=== PATIENT | female | born 1960 | race Caucasian/White ===

== ENCOUNTER 2018-08-03 21:03 | Inpatient (IN) | payer SELFPAY ==
[~2018-08-03] VITALS: Ht 170.2 cm; Wt 91.3 kg
[2018-08-03 21:46] LABS: BASOPHILS ABSOLUTE AUTO 0.04 K/mm3 (0.00-0.23); BASOPHILS PERCENT AUTO 1 % (0-2); EOSINOPHILS ABSOLUTE AUTO 0.08 K/mm3 (0.00-0.68); EOSINOPHILS PERCENT AUTO 1 % (0-6); Hematocrit 39.2 % (33.0-51.0); Hemoglobin 12.5 g/dL (11.5-16.0); IMMATURE GRAN ABSOLUTE AUTO 0.02 K/mm3 (0.00-0.10); IMMATURE GRAN PERCENT AUTO 0 % (0-1); LYMPHOCYTES PERCENT AUTO 9 % (21-46); MONOCYTES ABSOLUTE AUTO 0.21 K/mm3 (0.16-1.47); MONOCYTES PERCENT AUTO 3 % (4-13); Mean Corpuscular HGB 28.5 pg (26.0-34.0); Mean Corpuscular HGB Conc 31.9 g/dL (31.5-36.5); Mean Corpuscular Volume 89 fL (80-100); Mean Platelet Volume 9.7 fL (9.1-12.4); NEUTROPHILS ABSOLUTE AUTO 6.37 K/mm3 (1.96-9.15); NEUTROPHILS PERCENT AUTO 86 % (41-73); Platelet Count 211 K/mm3 (150-400); RDW Coefficient Variation 13.2 % (11.7-14.2); RDW Standard Deviation 43.8 fL (35.1-46.3); Red Blood Cell Count 4.39 M/mm3 (3.80-5.20); White Blood Cell Count 7.42 K/mm3 (4.00-11.30)
[2018-08-03 22:07] LABS: Alanine Aminotransfer (ALT/SGP 23 U/L (12-78); Albumin, Blood 3.8 g/dL (3.4-5.0); Albumin/Globulin Ratio 1.3 (0.8-1.8); Alk Phos 80 U/L (50-136); Anion Gap 8 mmol/L (6-16); Aspartate Aminotrans (AST/SGOT 7 U/L (12-37); Bilirubin, Total 0.3 mg/dL (0.1-1.0); Blood Urea Nitrogen 16 mg/dL (8-24); Bun/Creatinine Ratio 19.4 (12.0-20.0); CO2, Blood 28 mmol/L (21-32); Calcium, Blood 8.3 mg/dL (8.5-10.1); Chloride, Blood 107 mmol/L (98-108); Creatinine, Blood 0.83 mg/dL (0.40-1.00); Glomerular Filtration Rate >60 (60-); Glucose, Blood 187 mg/dL (70-99); Potassium, Blood 3.4 mmol/L (3.5-5.5); Sodium, Blood 143 mmol/L (136-145); Total Protein, Blood 6.8 g/dL (6.4-8.2)
[2018-08-03] MEDS ORDERED: CLON.1 PO (23:19)
[2018-08-03 23:26] LABS: International Normalized Ratio 0.98; Prothrombin Time Results 10.4 Sec (9.7-11.5)
--- NOTE | 2018-08-04 06:23 | NUR ---
PCU NOC SHIFT SUMMARY PATIENT ALERT AND ORIENTED X4 T/O SHIFT. RESPIRATIONS E/U ON ROOM AIR; LUNG SOUNDS CLEAR. PATIENT DENIES ANY CHEST PAIN OR PRESSURE T/O SHIFT. PATIENT ARRIVED WITH NITRO PATCH IN PLACE - PATCH REMOVED. PATIENT REPORTED HEADACHE RELIEVED WITH MEDICATION PER EMAR. PATIENT INDEPENDENT IN ROOM. HEPARIN GTT RUNNING VERIFIED BY TITI TERRY. NO ACUTE CHANGES T/O SHIFT. PATIENT REMAINS SINUS TO SINUS WILBUR WITH NO CARDIAC EVENTS NOTED. [facility] AND REPORT TO JIMMY TERRY.
--- NOTE | 2018-08-04 07:46 | NUR ---
NURSING PCU DAYSHIFT: Assumed care of pt at approx 0700. A/O, very pleasant and cooperative w/care. C/O 10 pain r/t DEWEY which pt states is chronic. Ambulates indepedently and w/o difficulty. Skin is intact w/no breakdown noted. Tele in place, NSR, hypertensive, no c/o CP/pressure, trace BLE edema. L/S cta t/o, O2 sat stable on RA, denies dyspnea, no noted cough. Abd SNT, BT+, voiding w/o difficulty. PIV x1, hep gtt infusing at 13u/kg/hr (19.2 mls/hr) per pharmacy dosing. No s/s of acute distress at this time. Pt is NPO, awaiting rounding from PMD and cardiology consult. Discussed and provided education regarding troponin, hep gtt, CAD, PO medications, and angiogram. Pt denies any current needs or questions regarding plan of care. Call light in reach, cont to monitor for any changes.
[2018-08-04 10:15] LABS: CHOL/HDL RATIO 2.7; Cholesterol 196 mg/dL (50-200); HDL Cholesterol 73 mg/dL (>39); LDL/HDL RATIO 1.5; Low Density Lipoprotein Chol 109 mg/dL (0-110); Magnesium, Blood 2.1 mg/dL (1.6-2.4); Triglycerides 71 mg/dL (30-160); Very Low Density Lipoprot Chol 14 mg/dL (6-32)
--- NOTE | 2018-08-04 11:49 | NUR ---
ECHOCARDIOGRAM COMPLETED
--- NOTE | 2018-08-04 17:56 | NUR ---
NURSING PCU DAYSHIFT SUMMARY: No significant changes noted t/o the shift. Seen by PMD and environmental professional, new d/o received. Angiogram completed early this afternoon, returned to room at approx 1430. R radial site w/TR band in place, no bleed or hematoma noted. Recovering as per protocol, BP improved, wrist board remains in place. Family has remained at bedside t/o the shift. Plan of care and medications discussed. Pt and family deny any questions/needs at this time. Pt is hopeful for discharge home tomorrow, cont to monitor until rpt is given to NOC RN.
[2018-08-05 04:08] LABS: BASOPHILS ABSOLUTE AUTO 0.05 K/mm3 (0.00-0.23); BASOPHILS PERCENT AUTO 1 % (0-2); EOSINOPHILS ABSOLUTE AUTO 0.15 K/mm3 (0.00-0.68); EOSINOPHILS PERCENT AUTO 3 % (0-6); Hematocrit 38.8 % (33.0-51.0); Hemoglobin 12.3 g/dL (11.5-16.0); IMMATURE GRAN ABSOLUTE AUTO 0.02 K/mm3 (0.00-0.10); IMMATURE GRAN PERCENT AUTO 0 % (0-1); LYMPHOCYTES ABSOLUTE AUTO 0.94 K/mm3 (0.84-5.20); LYMPHOCYTES PERCENT AUTO 16 % (21-46); MONOCYTES ABSOLUTE AUTO 0.49 K/mm3 (0.16-1.47); MONOCYTES PERCENT AUTO 8 % (4-13); Mean Corpuscular HGB Conc 31.7 g/dL (31.5-36.5); Mean Corpuscular Volume 88 fL (80-100); Mean Platelet Volume 9.8 fL (9.1-12.4); NEUTROPHILS ABSOLUTE AUTO 4.35 K/mm3 (1.96-9.15); NEUTROPHILS PERCENT AUTO 73 % (41-73); Platelet Count 220 K/mm3 (150-400); RDW Coefficient Variation 13.7 % (11.7-14.2); Red Blood Cell Count 4.39 M/mm3 (3.80-5.20)
[2018-08-05 04:29] LABS: Albumin, Blood 3.6 g/dL (3.4-5.0); Albumin/Globulin Ratio 1.3 (0.8-1.8); Bilirubin, Total 0.4 mg/dL (0.1-1.0); Bun/Creatinine Ratio 21.2 (12.0-20.0); Calcium, Blood 8.5 mg/dL (8.5-10.1); Creatinine, Blood 1.04 mg/dL (0.40-1.00); Globulin, Blood 2.8 g/dL (2.2-4.0); Potassium, Blood 3.9 mmol/L (3.5-5.5); Total Protein, Blood 6.4 g/dL (6.4-8.2)
--- NOTE | 2018-08-05 07:21 | NUR ---
a+o, ready to go home, no change to pucture site on wrist, denied pain, headache finally receeded, vss, room air report given to returning day shift
--- NOTE | 2018-08-05 07:40 | NUR ---
NURSING PCU DAYSHIFT SUMMARY: Assumed care of pt at approx 0700. A/O, pleasant, cooperative w/care. C/O 12/03 DEWEY related pain, treating w/meds and rest w/low lights. Skin is intact w/no breakdown, flat red rash present on pt's neck which is new from previous day. R radial site from angiogram 08/04, no bleed or hematoma noted, tegaderm and wrist board in place. Tele in place, NSR, no c/o CP/pressure, BP stable, no noted edema. L/S cta, O2 sat stable on RA, denies dyspnea, no noted cough. Abd SNT, BT+, voiding w/o difficulty. PIV x1, s/l. No s/s of acute distress at this time. Awaiting rounding from PMD and hide sorter. Pt is hopeful for discharge home. Pt denies any current needs or questions regarding plan of care. Call light in reach, cont to monitor for any changes.
[2018-08-05] MEDS ORDERED: ATOR80 PO (10:46)
[2018-08-05] MEDS ORDERED: CARV3.125 PO (10:46)
[2018-08-05] MEDS ORDERED: ASPI81CH PO (10:46)
[2018-08-05] MEDS ORDERED: LOSA50 PO (10:47)
[2018-08-05] MEDS ORDERED: Isosorbide Mono60 MG PO (10:47)
[2018-08-05] MEDS ORDERED: CLOP75 PO (10:47)
--- NOTE | 2018-08-05 11:05 | NUR ---
NURSING PCU DISCHARGE SUMMARY: No significant changes noted t/o the a.m. Seen by PMD and enrober tender, discharge home d/o received. Pt verbalized understanding of all written and verbal discharge instructions. PIV dc'd w/cath intact. Rx's called to [facility] pharmacy per pt request. Cont to monitor until discharge is completed.
== END 2018-08-05 12:00 | disposition home or self-care (01) | DRG 282 ==
LOC: ER 21:03 → PCU 23:38
PROVIDERS: Emergency Medicine; Internal Medicine; ADMIT Hospitalist
PROC: 4A023N7 Measurement of Cardiac Sampling and Pressure, Left Heart, Percutaneous Approach (ICD-10-PCS; principal; 2018-08-04)
PROC: B2111ZZ Fluoroscopy of Multiple Coronary Arteries using Low Osmolar Contrast (ICD-10-PCS; 2018-08-04)
DX: I21.4 Non-ST elevation (NSTEMI) myocardial infarction (principal); I10 Essential (primary) hypertension; E87.6 Hypokalemia
CPT/HCPCS: 36415; 71046; 80053; 80061; 83036; 83735; 84443; 84484; 85025; 85610; 85730; 93005; 93010; 93306; 93458; 96365; 96366; 99152; 99285-25; C1769; C1894; J1644; J2250; J3010; J7030; Q0163; Q9967

== ENCOUNTER 2020-08-06 11:40 | Day surgery (SDC) | payer OTHER ==
[~2020-08-06] VITALS: Ht 170.2 cm; Wt 98.4 kg
[~2020-08-06 11:40] MED LIST: ASPI81CH PO; ATOR80 PO; Aspirin EC81 MG PO; Benadryl25 MG PO; Bisoprolol Fumar5 MG PO; CARV3.125 PO; CLON.1 PO; CLOP75 PO; Estrace Vagin42.5 GM; Isosorbide Mono60 MG PO; LOSA50 PO; OMEGA-3 FISH O1 EAC6 PO; PANT40 PO
[2020-08-06] MEDS ORDERED: CARV3.125 PO (12:18)
[2020-08-06] MEDS ORDERED: CLOP75 PO (12:20)
[2020-08-06] MEDS ORDERED: ISOMON20 PO (12:20)
== END 2020-08-06 13:55 | disposition home or self-care (01) ==
LOC: ORSCSDS 11:40
PROVIDERS: Surgery
PROC: 0DJD8ZZ Inspection of Lower Intestinal Tract, Via Natural or Artificial Opening Endoscopic (ICD-10-PCS; principal; 2020-08-06 13:00)
DX: Z12.11 Encounter for screening for malignant neoplasm of colon (principal); Z80.0 Family history of malignant neoplasm of digestive organs; F32.9 Major depressive disorder, single episode, unspecified; Z79.82 Long term (current) use of aspirin; Z79.899 Other long term (current) drug therapy
CPT/HCPCS: J2704; J7120

== ENCOUNTER 2023-09-30 22:45 | Observation (INO) | payer OTHER ==
[~2023-09-30] VITALS: Ht 170.2 cm; Wt 92.0 kg
[~2023-09-30 22:45] MED LIST changes: +ISOMON20 PO
[2023-09-30 23:07] LABS: BASOPHILS ABSOLUTE AUTO 0.03 K/mm3 (0.00-0.23); BASOPHILS PERCENT AUTO 1 % (0-2); EOSINOPHILS ABSOLUTE AUTO 0.19 K/mm3 (0.00-0.68); EOSINOPHILS PERCENT AUTO 5 % (0-6); Hematocrit 39.2 % (33.0-51.0); Hemoglobin 12.5 g/dL (11.5-16.0); IMMATURE GRAN ABSOLUTE AUTO 0.01 K/mm3 (0.00-0.10); IMMATURE GRAN PERCENT AUTO 0 % (0-1); LYMPHOCYTES ABSOLUTE AUTO 1.42 K/mm3 (0.84-5.20); LYMPHOCYTES PERCENT AUTO 34 % (21-46); MONOCYTES ABSOLUTE AUTO 0.34 K/mm3 (0.16-1.47); MONOCYTES PERCENT AUTO 8 % (4-13); Mean Corpuscular HGB 28.7 pg (26.0-34.0); Mean Corpuscular HGB Conc 31.9 g/dL (31.5-36.5); Mean Corpuscular Volume 90 fL (80-100); Mean Platelet Volume 9.4 fL (9.1-12.4); NEUTROPHILS PERCENT AUTO 53 % (41-73); Platelet Count 235 K/mm3 (150-400); RDW Coefficient Variation 14.1 % (11.7-14.2); RDW Standard Deviation 46.5 fL (35.1-46.3); Red Blood Cell Count 4.36 M/mm3 (3.80-5.20); White Blood Cell Count 4.19 K/mm3 (4.00-11.30)
[2023-09-30] MEDS ORDERED: Aspirin 325 MG Tab PO ONE (23:20)
[2023-09-30 23:30] LABS: Albumin, Blood 3.7 g/dL (3.4-5.0); Albumin/Globulin Ratio 1.2 (0.8-1.8); Bilirubin, Total 0.2 mg/dL (0.1-1.0); Bun/Creatinine Ratio 23.6 (12.0-20.0); Calcium, Blood 9.1 mg/dL (8.5-10.1); Creatinine, Blood 0.85 mg/dL (0.40-1.00); Globulin, Blood 3.1 g/dL (2.2-4.0); Potassium, Blood 3.8 mmol/L (3.5-5.5); Total Protein, Blood 6.8 g/dL (6.4-8.2)
[2023-10-01] VITALS (7 sets, daily range): BP systolic 135–166; BP diastolic 81–91
[2023-10-01 02:01] LABS: Anti-Xa UFH, PHA Monitoring <0.10 IU/mL; International Normalized Ratio 0.92; Prothrombin Time Results 9.7 Sec (9.7-11.5)
[2023-10-01] MEDS ORDERED: Heparin Sodium,Porcine/0.5 NS 500 ML IV SCH (02:10)
[2023-10-01] MEDS ORDERED: Bisoprolol Fumar5 MG PO (02:15)
[2023-10-01] MEDS ORDERED: ESCI20 PO (02:17)
[2023-10-01] MEDS ORDERED: FentaNYL Citrate 50 MCG/ML 2 ML Injection IV PRN (02:20)
[2023-10-01] MEDS ORDERED: Nitroglycerin 0.4 MG SUBL SL PRN (02:20)
[2023-10-01] MEDS ORDERED: NS 1,000 ML IV SCH (02:20)
[2023-10-01] MEDS ORDERED: ALBU90OI INH (02:22)
[2023-10-01] MEDS ORDERED: HydrALAZINE HCl 20 MG / ML 1ML Vial IV PRN (02:25)
[2023-10-01] MEDS ORDERED: Ondansetron HCl 2 MG / ML 2ML Vial IV PRN (02:25)
[2023-10-01] MEDS ORDERED: Clopidogrel Bisulfate 300 MG Cap PO ONE (03:00)
[2023-10-01] MEDS ORDERED: Atorvastatin 40 MG Tab PO SCH (03:00)
--- NOTE | 2023-10-01 04:29 | NUR ---
PT IS ALERT AND ORIENTED X 4, COOPERATIVE WITH CARE AND ABLE TO MAKE NEEDS KNOWN. SHE IS HO-CHUNK. PT IS AMBULATORY AND TOLERATES WALKING TO RESTROOM WELL. NO COMPLAINTS OF DIZZINESS. PT IS ON RA AND MAINTAINS 02 SATURATION ABOVE 92%, SHE DENIES SOB. PT HAS OCCASIONAL NONPRODUCTIVE COUGH THAT SHE SAYS SHE HAS AT BASELINE. PT'S HR IS SB/SR 50'S-60'S, SHE DENIES CHEST PAIN/PRESSURE, BP IS STABLE, SEE VITALS. PT IS CONTINENT OF BLADDER AND BOWELS. IV TO R FA PATENT AND RUNNING HEP GTT PER EMAR. IV PLACED TO L AC, NS RUNNING PER EMAR. PT IS NPO PER ORDERS. PT SLEEPING IN BED WITH UNLABORED BREATHING. CALL LIGHT WITHIN REACH.
[2023-10-01] MEDS ORDERED: Albuterol HFA200 ACT/6.7 GM INH INH PRN (06:05)
[2023-10-01 07:29] LABS: Influenza A, PCR NEGATIVE (NEGATIVE); Influenza B, PCR NEGATIVE (NEGATIVE); Resp Syncytial Virus, PCR NEGATIVE (NEGATIVE); SARS-Cov-2 (COVID-19) PCR, MMC NEGATIVE (NEGATIVE)
[2023-10-01 08:45] LABS: BASOPHILS ABSOLUTE AUTO 0.03 K/mm3 (0.00-0.23); BASOPHILS PERCENT AUTO 1 % (0-2); EOSINOPHILS ABSOLUTE AUTO 0.14 K/mm3 (0.00-0.68); EOSINOPHILS PERCENT AUTO 3 % (0-6); Hematocrit 37.7 % (33.0-51.0); Hemoglobin 12.2 g/dL (11.5-16.0); IMMATURE GRAN ABSOLUTE AUTO 0.01 K/mm3 (0.00-0.10); IMMATURE GRAN PERCENT AUTO 0 % (0-1); LYMPHOCYTES ABSOLUTE AUTO 0.99 K/mm3 (0.84-5.20); LYMPHOCYTES PERCENT AUTO 24 % (21-46); MONOCYTES ABSOLUTE AUTO 0.27 K/mm3 (0.16-1.47); MONOCYTES PERCENT AUTO 6 % (4-13); Mean Corpuscular HGB 28.6 pg (26.0-34.0); Mean Corpuscular HGB Conc 32.4 g/dL (31.5-36.5); Mean Corpuscular Volume 89 fL (80-100); Mean Platelet Volume 9.3 fL (9.1-12.4); NEUTROPHILS ABSOLUTE AUTO 2.78 K/mm3 (1.96-9.15); NEUTROPHILS PERCENT AUTO 66 % (41-73); Platelet Count 205 K/mm3 (150-400); RDW Coefficient Variation 14.1 % (11.7-14.2); RDW Standard Deviation 45.3 fL (35.1-46.3); Red Blood Cell Count 4.26 M/mm3 (3.80-5.20); White Blood Cell Count 4.22 K/mm3 (4.00-11.30)
[2023-10-01] MEDS ORDERED: Losartan Potassium 50 MG Tab PO SCH (09:00)
[2023-10-01] MEDS ORDERED: Citalopram Hydrobromide 20 MG Tab PO SCH (09:00)
[2023-10-01] MEDS ORDERED: Metoprolol Succinate 50 MG TABCR PO SCH (09:00)
[2023-10-01 09:12] LABS: Albumin, Blood 3.4 g/dL (3.4-5.0); Albumin/Globulin Ratio 1.2 (0.8-1.8); Bilirubin, Total 0.4 mg/dL (0.1-1.0); Bun/Creatinine Ratio 20.1 (12.0-20.0); Calcium, Blood 8.7 mg/dL (8.5-10.1); Creatinine, Blood 0.7 mg/dL (0.40-1.00); Globulin, Blood 2.9 g/dL (2.2-4.0); Potassium, Blood 3.8 mmol/L (3.5-5.5); Total Protein, Blood 6.3 g/dL (6.4-8.2)
[2023-10-01] MEDS ORDERED: LIPITOR80 MG PO (11:49)
--- NOTE | 2023-10-01 12:40 | NUR ---
DISCHARGE NOTE PT WAS ALERT AND ORIENTED X 4, VSS. SHE REPORTED FEELING CP THIS AM AT APPROX 0730 BUT OTHERWISE DENIED FEELINGS OF CHEST PAIN/PRESSURE, LIGHTHEADEDNESS/DIZZINESS WELL FEELINGS OF NAUSEA. SHE WAS INDEPENDENT IN THE ROOM. DR. AGUILERA AND DR. APPLE AT BEDSIDE THIS AM. THIS RN DISCUSSED DISCHARGE INSTRUCTIONS INCLUDING FOLLOW UP APPOINTMENTS AND MEDICATION REGIMEN. PT LEFT PCU AT APPROX. 1235 W/ ALL OF PERSONAL BELONGINS. SHE WAS ESCORTED BY THIS RN AND WALKED TO [facility].
[2023-10-02] MEDS ORDERED: Clopidogrel Bisulfate 75 MG Tab PO SCH (09:00)
[2023-10-02] MEDS ORDERED: Aspirin 81 MG Chew PO SCH (09:00)
== END 2023-10-01 12:37 | disposition home or self-care (01) ==
LOC: ER 22:45 → PCU 22:46
PROVIDERS: Internal Medicine; Physician Assistant; ADMIT Student in an Organized Health Care Education/Training Program
DX: R07.89 Other chest pain (principal); I25.2 Old myocardial infarction; I10 Essential (primary) hypertension; I51.81 Takotsubo syndrome; Z79.82 Long term (current) use of aspirin; Z79.02 Long term (current) use of antithrombotics/antiplatelets; Z88.5 Allergy status to narcotic agent; Z88.6 Allergy status to analgesic agent
CPT/HCPCS: 0241U; 36415; 71046; 80053; 84484; 85025; 85520; 85610; 85730; 93306; 96374; 99285-25; A9270; G0378; J1644; J7030

== ENCOUNTER 2025-02-26 14:11 | Inpatient (IN) | payer OTHER ==
[~2025-02-26] VITALS: Ht 172.7 cm; Wt 98.7 kg
[~2025-02-26 14:11] MED LIST changes: +ALBU90OI INH; +ESCI20 PO; +LIPITOR80 MG PO
[2025-02-26 14:46] LABS: BASOPHILS ABSOLUTE AUTO 0.03 K/mm3 (0.00-0.23); BASOPHILS PERCENT AUTO 1 % (0-2); EOSINOPHILS ABSOLUTE AUTO 0.16 K/mm3 (0.00-0.68); EOSINOPHILS PERCENT AUTO 3 % (0-6); Hematocrit 36.9 % (33.0-51.0); Hemoglobin 12.0 g/dL (11.5-16.0); IMMATURE GRAN ABSOLUTE AUTO 0.02 K/mm3 (0.00-0.10); IMMATURE GRAN PERCENT AUTO 0 % (0-1); LYMPHOCYTES ABSOLUTE AUTO 0.95 K/mm3 (0.84-5.20); LYMPHOCYTES PERCENT AUTO 20 % (21-46); MONOCYTES ABSOLUTE AUTO 0.32 K/mm3 (0.16-1.47); MONOCYTES PERCENT AUTO 7 % (4-13); Mean Corpuscular HGB Conc 32.5 g/dL (31.5-36.5); Mean Corpuscular Volume 88 fL (80-100); NEUTROPHILS ABSOLUTE AUTO 3.37 K/mm3 (1.96-9.15); NEUTROPHILS PERCENT AUTO 70 % (41-73); NRBC ABSOLUTE 0.00 K/mm3 (0.00-0.02); NRBC Auto 0.0 /100 WBC (0.0-0.2); Platelet Count 228 K/mm3 (150-400); RDW Coefficient Variation 13.6 % (11.7-14.2); RDW Standard Deviation 43.8 fL (35.1-46.3)
[2025-02-26 14:58] LABS: Alanine Aminotransfer (ALT/SGP 35.0 U/L (12-78); Albumin, Blood 3.5 g/dL (3.4-5.0); Albumin/Globulin Ratio 1.1 (0.8-1.8); Anion Gap 9.0 mmol/L (3-11); Aspartate Aminotrans (AST/SGOT 16.0 U/L (12-37); Bilirubin, Total 0.5 mg/dL (0.1-1.0); Blood Urea Nitrogen 18.0 mg/dL (8-24); CO2, Blood 27.0 mmol/L (21-32); Calcium, Blood 8.6 mg/dL (8.5-10.1); Chloride, Blood 110.0 mmol/L (98-108); Creatinine, Blood 0.84 mg/dL (0.40-1.00); Globulin, Blood 3.2 g/dL (2.2-4.0); Glucose, Blood 95.0 mg/dL (70-99); Potassium, Blood 4.5 mmol/L (3.5-5.5); Sodium, Blood 141.0 mmol/L (136-145); Total Protein, Blood 6.7 g/dL (6.4-8.2)
[2025-02-26] MEDS ORDERED: Nitroglycerin Patch 0.4 MG / HR TOP ONE (19:15)
[2025-02-26 20:24] LABS: Anti-Xa UFH, PHA Monitoring <0.10 IU/mL; Prothrombin Time Results 10.7 Sec (9.7-11.5)
[2025-02-26] MEDS ORDERED: HydrALAZINE HCl 20 MG / ML 1ML Vial IV PRN (20:35)
[2025-02-26] MEDS ORDERED: Dose Adjust by Pharmacy XX STA (20:40)
[2025-02-26] MEDS ORDERED: Albuterol 2.5 MG/3 ML VIAL INH PRN (20:40)
[2025-02-26] MEDS ORDERED: Ondansetron HCl 2 MG / ML 2ML Vial IV PRN (20:40)
[2025-02-26] MEDS ORDERED: Heparin Sodium 5000 Units/ML 1ML MDV IV ONE (20:45)
[2025-02-26] MEDS ORDERED: HydrALAZINE HCl 20 MG / ML 1ML Vial IV ONE (21:00)
[2025-02-26] MEDS ORDERED: Heparin Sodium,Porcine/0.5 NS 500 ML IV SCH (21:00)
[2025-02-26] MEDS ORDERED: NS 1,000 ML IV SCH (23:30)
[2025-02-26 23:46] VITALS: BP 140/101
[2025-02-26] MEDS ORDERED: Cyclobenzaprine5 MG PO (23:58)
[2025-02-27] VITALS (10 sets, daily range): BP systolic 114–148; BP diastolic 71–99
[2025-02-27 03:12] LABS: Hematocrit 34.9 % (33.0-51.0); Hemoglobin 11.4 g/dL (11.5-16.0); Mean Corpuscular HGB Conc 32.7 g/dL (31.5-36.5); Mean Corpuscular Volume 87 fL (80-100); NRBC ABSOLUTE 0.00 K/mm3 (0.00-0.02); NRBC Auto 0.0 /100 WBC (0.0-0.2); Platelet Count 206 K/mm3 (150-400); RDW Coefficient Variation 13.7 % (11.7-14.2); RDW Standard Deviation 43.9 fL (35.1-46.3)
[2025-02-27 03:32] LABS: Anion Gap 8.0 mmol/L (3-11); Blood Urea Nitrogen 19.0 mg/dL (8-24); CO2, Blood 28.0 mmol/L (21-32); Calcium, Blood 8.5 mg/dL (8.5-10.1); Chloride, Blood 108.0 mmol/L (98-108); Creatinine, Blood 0.8 mg/dL (0.40-1.00); Glucose, Blood 87.0 mg/dL (70-99); Magnesium, Blood 2.1 mg/dL (1.6-2.4); Potassium, Blood 3.6 mmol/L (3.5-5.5); Sodium, Blood 140.0 mmol/L (136-145)
[2025-02-27] MEDS ORDERED: Dose Adjust by Pharmacy XX STA (04:13)
--- NOTE | 2025-02-27 06:17 | NUR ---
SHIFT SUMMARY THIS RN RECEIVED REPORT FROM LUIS TERRY IN THE ER VIA PHONE. PT TRANSFERRED TO U 7 AROUND 0000. PT AMBULATED WITH STEADY GAIT FROM GURNEY TO BED. PT REPORTS CHEST/BACK PAIN THAT COMES/GOES. SHE STATES THAT THE CHEST PAIN FEELS LIKE PRESSURE AND REPORTED IT AT 5/10. REPORTING THAT THE BACK PAIN IS LOCATED BETWEEN THE SHOULDER BLADES AND IS SHARP, RATING IT A 5/10 WELL. PT MEDICATED WITH PO TRAMADOL PER EMAR. DENIED PAIN AN HOUR AFTER MEDICATION GIVEN. BP STABLE. SB ON MONITOR WITH HR 40-50S. ON RA WITH SPO2 >92%. DENIES SOB AT REST. HEP GTT AND NS INFUSING PER EMAR. CARDIOLOGY CONSULT CALLED IN. PT HAS BEEN NPO SINCE MIDNIGHT. BED IN LOWEST POSITION AND CALL LIGHT WITHIN REACH. THIS RN WILL REPORT TO ONCOMING DAYSHIFT RN.
[2025-02-27] MEDS ORDERED: NS 250 ML IV ONE (10:15)
[2025-02-27] MEDS ORDERED: NS 1,000 ML IV ONE ×2 (10:15→10:22)
[2025-02-27] MEDS ORDERED: Verapamil HCL 2.5 MG/ML 2ML Injection ONE (10:15)
[2025-02-27] MEDS ORDERED: Heparin Sodium 1000 Units/ML 10ML MDV ONE (10:15)
[2025-02-27] MEDS ORDERED: Nitroglycerin 2 MG/20 ML BTL ONE (10:16)
[2025-02-27] MEDS ORDERED: Midazolam HCl 1MG / ML 2ML Vial ONE (10:41)
[2025-02-27] MEDS ORDERED: FentaNYL Citrate 50 MCG/ML 2 ML Injection ONE (10:41)
[2025-02-27] MEDS ORDERED: NS 500 ML IV SCH (11:15)
--- NOTE | 2025-02-27 13:24 | NUR ---
Upon receiving a referral for spiritual care, I visited the patient. She tells me about the concerns related to her heart, the good news about having no blockages and the hopes that she can destress her life. We talk about her family unit complications, her strong Cheondoism zach and her wonderful islam called [facility]. I provided therapeutic listening, anxiety containment and prayer. The patient responded well and displayed evidence of reduced stress. I will continue to remain avialable to patient and family.
--- NOTE | 2025-02-27 15:00 | NUR ---
TR BAND RECOVERY PT BACK FROM SECTION LEADER AND MACHINE SETTER AT APPROXIMATELY 1115. PT A&Ox4, CALLS AND COMMUNICATES NEEDS APPROPRIATELY. BP STABLE, SINUS WILBUR 50's, DENIES CP/PRESSURE. SpO2> 925 RA, DENIES SOB. ARRIVED WITH 9mLs IN TR BAND ON R RADIAL. ARM BOARD IN PLACE. NO BRUISING, BLEEDING, HEMATOMA PRESENT. DENIES TENDERNESS. 1255: 2mLs REMOVED FROM TR BAND. NO BRUISING, BLEEDING, HEMATOMA PRESENT. DENIES TENDERNESS. ARM BOARD IN PLACE. 1315: 2mLs REMOVED FROM TR BAND. NO BRUISING, BLEEDING, HEMATOMA PRESENT. DENIES TENDERNESS. ARM BOARD IN PLACE. 1330: 2mLs REMOVED FROM TR BAND. NO BRUISING, BLEEDING, HEMATOMA PRESENT. DENIES TENDERNESS. ARM BOARD IN PLACE. 1350: 2mLs REMOVED FROM TR BAND, TR BAND NOW EMPTY. NO BRUISING, BLEEDING, HEMATOMA PRESENT. DENIES TENDERNESS. ARM BOARD IN PLACE. 1450: TR BAND REMOVED WNL. SITE CLEANED WITH CHLORHEXIDINE, SKIN PREP APPLIED, TEGADERM PLACED. NO BRUISING, BLEEDING, HEMATOMA PRESENT. DENIES TENDERNESS. ARM BOARD IN PLACE.
--- NOTE | 2025-02-27 17:19 | NUR ---
Right radial site recovered within normal limits. See TR band recovery note. Pt AOx4. Able to call and communicate needs appropriately. Pt independent in the room, continent bowel and bladder. No C/O SOB, No C/O chest pain. No C/O nausea, vomiting, diarrhea. Vital signs stable and within normal limits. Discharge orders received. IV removed. Tip intact. Telemetry removed for discharge, bioprocessing manufacturing technician notified. Pt understands when follow-up appointments are. Pt taken to the entrance by wheelchair. Transportation arranged with spouse to take pt home. Pt belongings packed and sent home with pt. Pt wearing clothing from home. Tegaderm to right radial site clean dry and intact. No bleeding, swelling or tenderness at time of discharge. Pt given instructions for post-op care and restrictions.
== END 2025-02-27 16:13 | disposition home or self-care (01) | DRG 281 ==
LOC: ER 14:11 → PCU 20:31
PROVIDERS: Emergency Medicine; Nurse Practitioner Acute Care; Physician Assistant; ADMIT Internal Medicine
PROC: 4A023N7 Measurement of Cardiac Sampling and Pressure, Left Heart, Percutaneous Approach (ICD-10-PCS; principal; 2025-02-27)
PROC: B2111ZZ Fluoroscopy of Multiple Coronary Arteries using Low Osmolar Contrast (ICD-10-PCS; 2025-02-27)
DX: I21.4 Non-ST elevation (NSTEMI) myocardial infarction (principal); I51.81 Takotsubo syndrome; I10 Essential (primary) hypertension; D64.9 Anemia, unspecified; Z79.82 Long term (current) use of aspirin; Z79.899 Other long term (current) drug therapy
CPT/HCPCS: 36415; 71046; 76937; 80048; 80053; 83605; 83735; 84484; 85025; 85027; 85520; 85610; 93005; 93010; 93306; 93454; 99152; 99285-25; A9270; C1769; C1887; C1894; J1644; J2250; J3010; J7030; J7040; J7050; Q9967